=== PATIENT | male | born 1965 | race Two or more races ===

== ENCOUNTER 2018-02-19 15:38 | Emergency (ER) | payer BC, OTHER, SELFPAY ==
[~2018-02-19] VITALS: Ht 177.8 cm; Wt 131.4 kg
[2018-02-19 16:38] VITALS: BP 122/63
== END 2018-02-19 16:42 | disposition home or self-care (01) ==
LOC: ED 16:36
DX: S90.562A Insect bite (nonvenomous), left ankle, initial encounter (principal); S90.561A Insect bite (nonvenomous), right ankle, initial encounter; S80.862A Insect bite (nonvenomous), left lower leg, initial encounter; S80.861A Insect bite (nonvenomous), right lower leg, initial encounter; E11.9 Type 2 diabetes mellitus without complications; X58.XXXA Exposure to other specified factors, initial encounter; Y93.89 Activity, other specified; Y92.89 Other specified places as the place of occurrence of the external cause; Y99.8 Other external cause status
CPT/HCPCS: 99283; Q0177